=== PATIENT | female | born 1990 | race African-American/Black ===

== ENCOUNTER 2023-05-22 19:34 | Emergency (ER) | payer MEDICAID ==
[~2023-05-22] VITALS: Ht 157.5 cm; Wt 100.0 kg
[2023-05-22 19:42] VITALS: TEMP 97.8; O2SAT 100
[2023-05-22 20:26] LABS: EOSINOPHILS % 2.5 % (0.0-5.0); HEMATOCRIT. 38.3 % (36.0-48.0); HEMOGLOBIN. 12.9 g/dL (12.0-16.0); MEAN CORPUSCULAR HEMOGLOBIN 31.5 pg (28.0-32.0); MEAN CORPUSCULAR HGB CONC 33.8 g/dL (31.0-37.0); MEAN PLATELET VOLUME 8.6 fl (7.4-10.4); MONOCYTES % 8.3 % (2.0-8.0); NEUTROPHILS % 57.2 % (40.0-76.0); PLATELET 287 x1000/uL (130-400); RED BLOOD CELL COUNT 4.11 mill/uL (4.2-5.4); RED CELL DISTRIBUTION WIDTH 13.6 % (11.6-14.6); WHITE BLOOD COUNT 8.1 x1000/uL (4.5-11.0)
[2023-05-22] MEDS: SODIUM CHLORIDE 0.9% 1,000 ML IV ONE (20:28)
[2023-05-22 20:39] LABS: HCG SCREEN NEGATIVE
[2023-05-22 20:42] LABS: ACETAMINOPHEN < 2 ug/mL (10-30); ALANINE AMINOTRANSFERASE 14 IU/L (10-49); ASPARTATE AMINOTRANSFERASE 29 IU/L (<34); BILIRUBIN TOTAL 0.2 mg/dL (0.1-1.0); CALCIUM 8.5 mg/dL (8.7-10.4); CARBON DIOXIDE 28 mEq/L (21-32); CHLORIDE 106 mEq/L (98-107); CREATININE 0.9 mg/dL (0.6-1.0); GLUCOSE 109 mg/dL (70-105); POTASSIUM 4.3 mEq/L (3.5-5.1); PROTEIN TOTAL 6.3 g/dL (6.0-8.3); SODIUM 139 mEq/L (136-145); UREA NITROGEN BLOOD 10 mg/dL (9-23)
[2023-05-22 20:48] LABS: ETHANOL BLOOD < 10 mg/dL (<10)
[2023-05-23 01:35] VITALS: BP 110/62; PULSE 69; RESP 12
== END 2023-05-23 01:43 | disposition home or self-care (01) ==
LOC: ER 19:34
DX: F41.0 Panic disorder [episodic paroxysmal anxiety] (principal); T43.595A Adverse effect of other antipsychotics and neuroleptics, initial encounter; F12.10 Cannabis abuse, uncomplicated; Y92.89 Other specified places as the place of occurrence of the external cause
CPT/HCPCS: 80053; 80307; 80329; 80320; 84703; 85025; 36415; 93005; 96360; 99284; J7030; G0480

== ENCOUNTER 2023-09-23 10:34 | Emergency (ER) | payer MEDICAID ==
[~2023-09-23] VITALS: Ht 157.5 cm; Wt 74.0 kg
[2023-09-23 10:45] VITALS: BP 119/76; TEMP 98.9; O2SAT 100
[2023-09-23 10:46] VITALS: PULSE 93; RESP 18; O2SAT 100
[2023-09-23] MEDS ORDERED: PREN-118 MT (11:29)
== END 2023-09-23 15:27 | disposition home or self-care (01) ==
LOC: ER 10:34
DX: R68.89 Other general symptoms and signs (principal); F12.10 Cannabis abuse, uncomplicated; Z32.01 Encounter for pregnancy test, result positive
CPT/HCPCS: 81025; 99282

== ENCOUNTER 2023-10-27 02:05 | Emergency (ER) | payer MEDICAID ==
[~2023-10-27] VITALS: Ht 157.5 cm; Wt 62.0 kg
[~2023-10-27 02:05] MED LIST: PREN-118 MT
[2023-10-27 02:13] VITALS: O2SAT 98
[2023-10-27] MEDS ORDERED: IBUP-2029 MT (03:30)
[2023-10-27] MEDS: HYDROCODONE/ACETAMINOPHEN 5/325MG TABLET PO ONE (03:41)
[2023-10-27] MEDS: KETOROLAC 30MG/ML VIAL IM ONE (03:41)
[2023-10-27 04:39] VITALS: BP 122/87; PULSE 60; RESP 15; TEMP 36.94740; O2SAT 100
== END 2023-10-27 04:40 | disposition home or self-care (01) ==
LOC: ER 02:05
DX: S63.501A Unspecified sprain of right wrist, initial encounter (principal); F12.10 Cannabis abuse, uncomplicated; Z98.890 Other specified postprocedural states; W01.0XXA Fall on same level from slipping, tripping and stumbling without subsequent striking against object, initial encounter; Y93.89 Activity, other specified; Y92.89 Other specified places as the place of occurrence of the external cause; Y99.8 Other external cause status
CPT/HCPCS: 73080; 73110; 73130; 96372; 99284; J1885; Z7610